=== PATIENT | female | born 1985 | race African-American/Black ===

== ENCOUNTER 2017-09-22 14:56 | Emergency (ER) | payer SELFPAY ==
--- NOTE | 2017-09-22 17:35 | RADIOLOGY REPORT (SQ) ---
EXAM DESCRIPTION: CHEST PA/LAT COMPLETED DATE/TIME: 09/22/2017 5:12 pm REASON FOR STUDY: sob COMPARISON: 12/13/2008 EXAM PARAMETERS: NUMBER OF VIEWS: two views TECHNIQUE: Digital Frontal and Lateral radiographic views of the chest acquired. RADIATION DOSE: NA LIMITATIONS: none FINDINGS: LUNGS AND PLEURA: No opacities, masses or pneumothorax. No pleural effusion. MEDIASTINUM AND HILAR STRUCTURES: No masses or contour abnormalities. HEART AND VASCULAR STRUCTURES: Heart normal size. No evidence for failure. BONES: No acute findings. HARDWARE: None in the chest. OTHER: No other significant finding. IMPRESSION: NO SIGNIFICANT RADIOGRAPHIC FINDING IN THE CHEST. TECHNICAL DOCUMENTATION: JOB ID: [id number] [employer]- All Rights Reserved
--- NOTE | 2017-09-22 17:35 | RADIOLOGY REPORT (SQ) ---
EXAM DESCRIPTION: SHOULDER LEFT 2 OR MORE VIEWS COMPLETED DATE/TIME: 09/22/2017 5:12 pm REASON FOR STUDY: pain COMPARISON: None. NUMBER OF VIEWS: Four views. TECHNIQUE: Internal rotation, external rotation, and Y view images acquired of the left shoulder. LIMITATIONS: None. FINDINGS: MINERALIZATION: Normal. BONES: No acute fracture or dislocation. No worrisome bone lesions. JOINTS: No dislocation. VISUALIZED LUNGS AND RIBS: No pneumothorax. No rib fracture. SOFT TISSUES: No radiopaque foreign body. OTHER: No other significant finding. IMPRESSION: NEGATIVE STUDY OF THE LEFT SHOULDER. NO RADIOGRAPHIC EVIDENCE OF ACUTE INJURY. TECHNICAL DOCUMENTATION: JOB ID: [id number] [employer]- All Rights Reserved
[2017-09-22] MEDS ORDERED: KETOROLAC TROMETHAMINE 60 MG/2 ML SDV IM ONE (18:03)
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
[2017-09-22 18:38] VITALS: BP 143/90
== END 2017-09-22 18:38 | disposition home or self-care (01) ==
LOC: ER 14:56
DX: M25.512 Pain in left shoulder (principal); G89.29 Other chronic pain
CPT/HCPCS: 99283; 71046; 73030; J1885

== ENCOUNTER 2017-11-28 09:41 | Emergency (ER) | payer OTHER ==
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
[2017-11-28] MEDS ORDERED: OXYCODONE-ACETAMINOPHEN 5-325 MG TABLET PO ONE (11:51)
[2017-11-28 12:00] VITALS: BP 138/94
== END 2017-11-28 12:00 | disposition home or self-care (01) ==
LOC: ER 09:41
DX: S01.511A Laceration without foreign body of lip, initial encounter (principal); S40.022A Contusion of left upper arm, initial encounter; S00.83XA Contusion of other part of head, initial encounter; R51 Headache; R22.0 Localized swelling, mass and lump, head; M79.632 Pain in left forearm; I10 Essential (primary) hypertension; W22.10XA Striking against or struck by unspecified automobile airbag, initial encounter; V89.2XXA Person injured in unspecified motor-vehicle accident, traffic, initial encounter
CPT/HCPCS: 99283

== ENCOUNTER 2018-12-26 20:50 | Emergency (ER) | payer OTHER ==
[2018-12-26 21:46] LABS: APPEARANCE,URINE CLOUDY; BILIRUBIN,URINE NEGATIVE (NEGATIVE); COLOR,URINE YELLOW; GLUCOSE, URINE NEGATIVE (NEGATIVE); KETONES,URINE TRACE mg/dL (NEGATIVE); LEUKOCYTE ESTERASE,URINE LARGE (NEGATIVE); NITRITE,URINE NEGATIVE (NEGATIVE); PROTEIN,URINE NEGATIVE (NEGATIVE); URINE SPECIFIC GRAVITY 1.014; UROBILINOGEN,URINE NEGATIVE mg/dL (<2.0)
[2018-12-26] MEDS ORDERED: AMLODIPINE BESYLATE 10 MG TABLET PO ONE (21:47)
[2018-12-26 21:50] LABS: HEMATOCRIT 41.5 % (36.0-47.0); HEMOGLOBIN 14.2 g/dL (12.0-15.5); MEAN CORPUSCULAR HEMOGLOBIN 31.8 pg (27.0-33.4); MEAN CORPUSCULAR HGB CONC 34.1 g/dL (32.0-36.0); MEAN CORPUSCULAR VOLUME 93 fl (80-97); PLATELET COUNT 290 10^3/uL (150-450); RED BLOOD COUNT 4.45 10^6/uL (3.72-5.28); RED CELL DISTRIBUTION WIDTH 13.6 % (11.5-14.0); WHITE BLOOD COUNT 7.8 10^3/uL (4.0-10.5)
--- NOTE | 2018-12-26 21:50 | ER Document Report ---
ED General - General Chief Complaint: High Blood Pressure Stated Complaint: DIFFICULTY BREATHING/BLOOD PRESSURE ISSUES Time Seen by Provider: 12/26/18 21:39 Primary Care Provider: STEPHANIE PUTNAM DO [NO LOCAL MD] - Follow up in 3-5 days Notes: 33-year-old female presents with high blood pressure headache and blurry vision. The headache is still there but her vision is now resolved and was only present for a couple of hours. She would like she can catch her breath a few hours back but that lasted about an hour and is now gone. No chest pain no chest pressure no unilateral neurologic symptoms. History of difficult to control hypertension and noncompliance, was off amlodipine for 3 months and took 1 dose today. Follow[address] with Dr. Putnam. TRAVEL OUTSIDE OF THE [place] IN LAST 30 DAYS: No - Related Data Allergies/Adverse Reactions: No Known Allergies Allergy (Verified 03/18/15 18:09) Past Medical History - Social History Smoking Status: Never Smoker Family History: Reviewed & Not Pertinent Patient has suicidal ideation: No Patient has homicidal ideation: No - Past Medical History Cardiac Medical History: Reports: Hx Hypertension Renal/ Medical History: Denies: Hx Peritoneal Dialysis Review of Systems - Review of Systems Notes: REVIEW OF SYSTEMS GEN: Denies fever, chills, weight loss ENT: Denies sore throat, nasal discharge, ear pain EYES: Solved blurry vision CV: Denies chest pain, palpitations, edema RESP: Denies cough, shortness of breath, wheezing GI: Denies abdominal pain, nausea, vomiting, diarrhea MSK: Denies joint pain/swelling, edema, SKIN: Denies rash, skin lesions LYMPH: Denies swollen glands/lymph nodes NEURO: Headache no unilateral neuro deficits PSYCH: Denies depression, suicidal or homicidal ideation PHYSICAL EXAMINATION General: No acute distress, well-nourished Head: Atraumatic, normocephalic ENT: Mouth normal, oropharynx moist, no exudates or tonsillar enlargement Eyes: Conjunctiva normal, pupils equal, lids normal Neck: No JVD, supple, no guarding CVS: Normal rate, regular rhythm, no murmurs Resp: No resp distress, equal and normal breath sounds bilaterally GI: Nondistended, soft, no tenderness to palpation, no rebound or guarding Ext: No deformities, no edema, normal range of motion in upper and lower ext Back: No CVA or midline TTP Skin: No rash, warm Lymphatic: No lymphadeopathy noted Neuro: Awake, alert. Face symmetric. GCS 15. No drift. Normal memory speech fluent. Physical Exam - Vital signs Vitals: Temp Pulse Resp BP Pulse Ox 98.4 F 88 18 196/119 H 100 12/26/18 20:54 12/26/18 20:54 12/26/18 20:54 12/26/18 20:54 12/26/18 20:54 Course - Re-evaluation Re-evalutation: 12/26/18 21:48 Symptom medic hypertension with no signs or symptoms of stroke, aortic dissection or acute coronary syndrome, all in the setting of noncompliance. Will give amlodipine here in an attempt to lower blood pressure some, but spleen the risks of normalizing her blood pressure acutely. Will check EKG for arrhythmia, but does not need full work-up for CHF dissection or stroke at this time. 12/26/18 23:31 Patient's blood pressure decreased after amlodipine. Her headache is gone after Motrin and amlodipine. I do not believe she requires a full work-up at this time, I have prescribed amlodipine and she will follow-up with her doctor. - Vital Signs Vital signs: Temp Pulse Resp BP Pulse Ox 98.4 F 88 16 181/107 H 100 12/26/18 20:54 12/26/18 20:54 12/26/18 22:32 12/26/18 22:32 12/26/18 22:32 - Laboratory Result Diagrams: 12/26/18 21:20 12/26/18 21:20 Laboratory results interpreted by me: 12/26/18 21:12 Urine Ketones TRACE H Ur Leukocyte Esterase LARGE H - EKG Interpretation by Nh EKG shows normal: Sinus rhythm Rate: Normal Rhythm: NSR When compared to previous EKG there are: Previous EKG unavailable Discharge - Discharge Clinical Impression: Poorly-controlled hypertension Condition: Good Disposition: HOME, SELF-CARE Instructions: Calcium Channel Blockers ([facility]), High Blood Pressure, Requiring Treatment ([facility]) Prescriptions: Amlodipine Besylate [Norvasc 10 mg Tablet] 10 mg PO DAILY #30 tablet Referrals: STEPHANIE PUTNAM DO [NO LOCAL MD] - Follow up in 3-5 days
[2018-12-26] MEDS ORDERED: IBUPROFEN 600 MG TABLET PO ONE (22:28)
[2018-12-26 23:44] VITALS: BP 156/94
--- NOTE | 2018-12-27 07:42 | EKG REPORT ---
SEVERITY:- NORMAL ECG - SINUS RHYTHM : Confirmed by: Nehemias Bacon MD 27-Dec-2018 07:41:44
== END 2018-12-26 23:40 | disposition home or self-care (01) ==
LOC: ER 20:50
DX: I10 Essential (primary) hypertension (principal); T46.1X6A Underdosing of calcium-channel blockers, initial encounter; Z91.14 Patient's other noncompliance with medication regimen; R51 Headache
CPT/HCPCS: 36415; 81001; 85027; 93005; 93010; 99284